=== PATIENT | male | born 1975 | race Caucasian/White ===

== ENCOUNTER 2016-12-31 12:28 | Inpatient (IN) | payer SELFPAY ==
[~2016-12-31] VITALS: Ht 182.9 cm; Wt 92.7 kg
[2016-12-31] MEDS ORDERED: SODIUM CHLORIDE FLUSH 10ML SYR IVF PRN (14:00)
[2016-12-31] MEDS ORDERED: POLYETHYLENE GLYCOL 17 GM PACKET PO PRN (15:00)
[2016-12-31] MEDS ORDERED: BISACODYL 10 MG SUPP PR PRN (15:00)
[2016-12-31] MEDS ORDERED: DOCUSATE 100 MG CAPSULE PO PRN (15:00)
[2016-12-31] MEDS ORDERED: ACETAMINOPHEN 325 MG TABLET PO PRN (15:00)
[2016-12-31 15:26] LABS: ASPARTATE AMINO TRANSFERASE 17 U/L (15-37)
[2016-12-31 15:30] LABS: IS PT STATUS REG ER OR PRE ER? YES
[2016-12-31] MEDS ORDERED: LEVETIRACETAM 1,000 MG in SODIUM CHLORIDE 0.9% 100 ML IV ONE (15:30)
[2016-12-31 16:11] VITALS: BP 145/78
[2016-12-31] MEDS: ONDANSETRON ODT 4 MG PO PRN (16:49)
[2016-12-31] MEDS: ENOXAPARIN 40 MG/0.4 ML SQ SCH (16:50)
[2016-12-31 18:58] VITALS: BP 126/84
[2016-12-31] MEDS: SODIUM CHLORIDE FLUSH 3ML SYRINGE IVF SCH (21:00)
[2017-01-01] MEDS: ONDANSETRON 2MG/ML, 2ML IVPush PRN ×2 (00:32→20:20)
[2017-01-01 03:45] VITALS: BP 127/78
[2017-01-01 08:03] VITALS: BP_SYST 123; BP_SYST 126; BP_SYST 144; BP_DIAS 76; BP_DIAS 84; BP_DIAS 87
[2017-01-01] MEDS: SODIUM CHLORIDE FLUSH 3ML SYRINGE IVF SCH ×2 (09:00→21:00)
[2017-01-01] MEDS: ONDANSETRON ODT 4 MG PO PRN (10:09)
[2017-01-01 15:15] VITALS: BP_SYST 122; BP_SYST 130; BP_SYST 146; BP_DIAS 79; BP_DIAS 80; BP_DIAS 86
[2017-01-01] MEDS: ENOXAPARIN 40 MG/0.4 ML SQ SCH (16:34)
[2017-01-01] MEDS ORDERED: GADOBUTROL 10 MMOL/10 ML PFS ONE (17:17)
[2017-01-01 20:11] VITALS: BP 172/100
[2017-01-01 20:28] VITALS: BP 151/95
[2017-01-01] MEDS ORDERED: LEVETIRACETAM 500 MG TABLET PO SCH (21:00)
[2017-01-02 02:05] VITALS: BP 136/82
[2017-01-02 05:09] LABS: ASPARTATE AMINO TRANSFERASE 17 U/L (15-37); BLOOD UREA NITROGEN 13 mg/dL (7-18)
[2017-01-02] MEDS: LEVETIRACETAM 500 MG TABLET PO SCH ×4 (08:32→20:50)
[2017-01-02] MEDS: SODIUM CHLORIDE FLUSH 3ML SYRINGE IVF SCH ×3 (08:35→20:50)
[2017-01-02] MEDS: ENOXAPARIN 40 MG/0.4 ML SQ SCH ×2 (15:00→15:16)
[2017-01-03 09:00] VITALS: BP 150/97
[2017-01-03] MEDS: LEVETIRACETAM 500 MG TABLET PO SCH (10:20)
[2017-01-03] MEDS: SODIUM CHLORIDE FLUSH 3ML SYRINGE IVF SCH (10:20)
[2017-01-03] MEDS: ENOXAPARIN 40 MG/0.4 ML SQ SCH (15:00)
[2017-01-03 15:05] VITALS: BP 140/91
[2017-01-03] MEDS ORDERED: LEVE750T37 PO (15:21)
== END 2017-01-03 17:15 | disposition home or self-care (01) | DRG 101 ==
LOC: ED 13:48 → EDIP 13:49 → ED 13:50 → 4WST 15:20 → EDIP 01-03 17:10
PROVIDERS: ADMIT Internal Medicine; ATTEND Internal Medicine
DX: G40.209 Localization-related (focal) (partial) symptomatic epilepsy and epileptic syndromes with complex partial seizures, not intractable, without status epilepticus (principal); R17 Unspecified jaundice; F12.90 Cannabis use, unspecified, uncomplicated; F17.290 Nicotine dependence, other tobacco product, uncomplicated; D72.829 Elevated white blood cell count, unspecified; R11.0 Nausea; Z82.3 Family history of stroke; Z88.7 Allergy status to serum and vaccine; Z79.899 Other long term (current) drug therapy
CPT/HCPCS: 36415; 70553; 71010; 80053; 80076; 82140; 82607; 82746; 84443; 84484; 85651; 86141; 86592; 93005; 95812; A9585; J1650; J1953; J2405; Q0162

== ENCOUNTER 2017-01-27 11:16 | Emergency (ER) | payer MEDICAID, OTHER ==
[~2017-01-27] VITALS: Ht 182.9 cm; Wt 92.3 kg
[~2017-01-27 11:16] MED LIST: LEVE750T37 PO
[2017-01-27 12:41] LABS: BLOOD UREA NITROGEN 10 mg/dL (7-18)
[2017-01-27 13:32] VITALS: BP 127/79
== END 2017-01-27 13:34 | disposition home or self-care (01) ==
LOC: ED 11:57
DX: R00.2 Palpitations (principal)
CPT/HCPCS: 36415; 80048; 82040; 85025; 93005; 99285

== ENCOUNTER 2017-02-01 17:32 | Emergency (ER) | payer SELFPAY ==
[~2017-02-01] VITALS: Ht 182.9 cm; Wt 91.9 kg
[2017-02-01 17:56] VITALS: BP 150/82
[2017-02-01 18:47] LABS: BLOOD UREA NITROGEN 11 mg/dL (7-18)
[2017-02-01] MEDS ORDERED: LEVETIRACETAM 500 MG TABLET PO ONE (21:44)
== END 2017-02-01 22:28 | disposition home or self-care (01) ==
LOC: ED 21:59
DX: R56.9 Unspecified convulsions (principal)
CPT/HCPCS: 36415; 80048; 82040; 85025; 99284